=== PATIENT | female | born 1950 | race Caucasian/White ===

== ENCOUNTER 2019-10-13 05:50 | Day surgery (SDC) | payer BC ==
[2019-10-11 09:51] LABS: BASOPHILS % (AUTO) 2.1 % (0.0-5.0); LYMPHOCYTES % (AUTO) 31.4 % (21.0-51.0); MEAN CORPUSCULAR HGB CONC 33.1 g/dL (32.0-36.0); MEAN CORPUSCULAR VOLUME 90.7 fL (79-99); MONOCYTES % (AUTO) 12.5 % (3.0-13.0); NEUTROPHILS % (AUTO) 43.8 % (40.0-77.0); PLATELET COUNT (AUTO) 320 K/uL (130-400); WHITE BLOOD COUNT (AUTO) 5.3 K/uL (4.8-10.8)
[2019-10-11 10:00] LABS: CREATININE 1.3 mg/dL (0.5-1.5); POTASSIUM 4.1 mmol/L (3.5-5.1)
[2019-10-11 10:03] LABS: INR 1.04 (0.85-1.15); PARTIAL THROMBOPLASTIN TIME 35.7 SEC (26.3-35.5); PROTHROMBIN TIME 11.2 SEC (9.6-11.6)
[2019-10-11 15:45] VITALS: BP 127/72
[2019-10-13] VITALS (9 sets, daily range): BP systolic 87–134; BP diastolic 55–70
[~2019-10-13] VITALS: Ht 180.3 cm; Wt 55.1 kg
[~2019-10-13 05:50] MED LIST: ALBU90AE IH; APIX5TAB PO; CALC-190 PO; DENO60DI SQ; EXEM25TA PO; LEVO100T12 PO; MVIT PO; PROP325C5 PO
[2019-10-13] MEDS ORDERED: SODIUM CHLORIDE 0.9% 1000ML 1,000 ML IV ONE (06:04)
[2019-10-13] MEDS ORDERED: HEPARIN SODIUM 1000UNIT/ML 10ML VIAL ONE (07:35)
[2019-10-13] MEDS ORDERED: MEPERIDINE-PF 25 MG/ML SYG ONE ×2 (07:36→09:25)
[2019-10-13] MEDS ORDERED: MIDAZOLAM HCL 1 MG/ML 2ML VIAL ONE ×2 (07:36→09:25)
[2019-10-13] MEDS ORDERED: LIDOCAINE HCL 2% 20ML ONE (07:37)
[2019-10-13] MEDS ORDERED: ISOPROTERENOL HCL 0.2 MG/ML AMP/VIAL/BAG ONE (08:00)
[2019-10-13] MEDS ORDERED: ACETAMINOPHEN 325 MG TAB ONE (14:08)
[2019-10-13] MEDS ORDERED: ACETAMINOPHEN 325 MG TAB PO PRN (14:15)
== END 2019-10-13 14:48 | disposition home or self-care (01) ==
LOC: DAH 05:50
PROVIDERS: ATTEND Internal Medicine Cardiovascular Disease
DX: I47.1 Supraventricular tachycardia (principal); I48.0 Paroxysmal atrial fibrillation; J44.9 Chronic obstructive pulmonary disease, unspecified; E03.9 Hypothyroidism, unspecified; F41.8 Other specified anxiety disorders; Z96.659 Presence of unspecified artificial knee joint; Z98.890 Other specified postprocedural states; Z79.899 Other long term (current) drug therapy; Z79.01 Long term (current) use of anticoagulants; Z82.49 Family history of ischemic heart disease and other diseases of the circulatory system
CPT/HCPCS: 36415; 80048; 85025; 85610; 85730; 93613; 93621; 93623; 93653; A4215; A4216; A4221; A4222; A4223 ×3; A4606; A4649 ×2; A4663; C1730 ×4; C1732; C1894 ×5; J1644 ×2; J2175 ×2; J2250 ×2; J3490 ×2; J7030; 99156; 99157

== ENCOUNTER 2020-03-08 05:51 | Day surgery (SDC) | payer BC ==
[2020-03-06 09:19] LABS: BASOPHILS % (AUTO) 1.6 % (0.0-5.0); EOSINOPHILS % (AUTO) 4.9 % (0.0-8.0); HEMATOCRIT 39.7 % (36-48); LYMPHOCYTES % (AUTO) 35.7 % (21.0-51.0); MEAN CORPUSCULAR HEMOGLOBIN 30.7 pg (27.0-33.0); MEAN CORPUSCULAR HGB CONC 32.7 g/dL (32.0-36.0); MEAN CORPUSCULAR VOLUME 93.6 fL (79-99); MONOCYTES % (AUTO) 12.9 % (3.0-13.0); NEUTROPHILS % (AUTO) 44.9 % (40.0-77.0); PLATELET COUNT (AUTO) 352 K/uL (130-400); RED BLOOD CELL COUNT(AUTO) 4.24 MIL/uL (4.00-5.50); RED CELL DISTRIBUTION WIDTH 11.6 % (11.0-15.5); WHITE BLOOD COUNT (AUTO) 4.5 K/uL (4.8-10.8)
[2020-03-06 09:33] LABS: CREATININE 1.2 mg/dL (0.5-1.5); INR 1.02 (0.85-1.15); PARTIAL THROMBOPLASTIN TIME 36.2 SEC (26.3-35.5); POTASSIUM 4.2 mmol/L (3.5-5.1)
[~2020-03-08] VITALS: Ht 180.3 cm; Wt 54.4 kg
[2020-03-08] VITALS (9 sets, daily range): BP systolic 101–139; BP diastolic 62–82
[~2020-03-08 05:51] MED LIST changes: -CALC-190 PO; -PROP325C5 PO
[2020-03-08] MEDS ORDERED: SODIUM CHLORIDE 0.9% 1000ML 1,000 ML IV ONE (07:02)
[2020-03-08] MEDS ORDERED: FLEC50TA3 PO (07:11)
[2020-03-08] MEDS ORDERED: HEPARIN SODIUM 1000UNIT/ML 10ML VIAL ONE (12:02)
[2020-03-08] MEDS ORDERED: LIDOCAINE HCL 2% 20ML ONE (12:03)
[2020-03-08] MEDS ORDERED: MIDAZOLAM HCL 1 MG/ML 2ML VIAL ONE ×3 (12:03→14:57)
[2020-03-08] MEDS ORDERED: ISOPROTERENOL HCL 0.2 MG/ML AMP/VIAL/BAG ONE ×2 (12:03→14:27)
[2020-03-08] MEDS ORDERED: MEPERIDINE-PF 25 MG/ML SYG ONE ×3 (12:03→14:57)
--- NOTE | 2020-03-08 12:15 | NUR ---
procedure pt taken to [facility] for scheduled procedure via bed, spouse at bedside. pt denied any pain or discomforts
[2020-03-08] MEDS ORDERED: DRON400T2 PO (16:03)
--- NOTE | 2020-03-08 19:27 | NUR ---
discharge pt and spouse given d/c instructions. both voiced understanding. pt groin sites free from bleeding or hematoma. pt taken out via w/c.
== END 2020-03-08 19:27 | disposition home or self-care (01) ==
LOC: DAH 05:51
PROVIDERS: ATTEND Internal Medicine Cardiovascular Disease
DX: I47.1 Supraventricular tachycardia (principal); I48.4 Atypical atrial flutter; I48.0 Paroxysmal atrial fibrillation; E03.9 Hypothyroidism, unspecified; F41.9 Anxiety disorder, unspecified; F32.9 Major depressive disorder, single episode, unspecified; J44.9 Chronic obstructive pulmonary disease, unspecified; Z82.49 Family history of ischemic heart disease and other diseases of the circulatory system; Z79.01 Long term (current) use of anticoagulants; Z79.899 Other long term (current) drug therapy; Z98.890 Other specified postprocedural states; Z79.890 Hormone replacement therapy
CPT/HCPCS: 36415; 80048; 85025; 85610; 85730; 93005; 93613; 93621; 93623; 93653; A4215; A4216; A4221; A4222; A4223 ×3; A4649 ×2; A4663; C1730 ×4; C1731; C1732; C1894 ×5; J1644 ×2; J2175 ×3; J2250 ×3; J3490 ×3; J7030; 99156; 99157

== ENCOUNTER → 2021-07-16 | Outpatient (CLI) | payer BC, MEDICARE ==
[~2021-07-16] MED LIST changes: +FLEC50TA3 PO; +LINA290C PO; -MVIT PO; +TRAM50TA4 PO
== END | disposition home or self-care (01) ==
LOC: SHCH 08:56
PROVIDERS: ATTEND Internal Medicine Cardiovascular Disease
DX: I49.5 Sick sinus syndrome (principal)
CPT/HCPCS: 93306

== ENCOUNTER 2021-07-18 09:48 | Day surgery (SDC) | payer BC, MEDICARE ==
[2021-07-16 09:43] VITALS: BP 146/73
[2021-07-16 15:50] LABS: BASOPHILS % (AUTO) 1.3 % (0.0-5.0); EOSINOPHILS % (AUTO) 2.6 % (0.0-8.0); HEMATOCRIT 38.3 % (36-48); LYMPHOCYTES % (AUTO) 23.3 % (21.0-51.0); MEAN CORPUSCULAR HEMOGLOBIN 31.3 pg (27.0-33.0); MEAN CORPUSCULAR HGB CONC 32.9 g/dL (32.0-36.0); MEAN CORPUSCULAR VOLUME 95.3 fL (79-99); MONOCYTES % (AUTO) 11.3 % (3.0-13.0); NEUTROPHILS % (AUTO) 61.4 % (40.0-77.0); PLATELET COUNT (AUTO) 357 K/uL (130-400); RED BLOOD CELL COUNT(AUTO) 4.02 MIL/uL (4.00-5.50); RED CELL DISTRIBUTION WIDTH 12.5 % (11.0-15.5)
[2021-07-16 16:00] LABS: CREATININE 1.1 mg/dL (0.5-1.5); POTASSIUM 4.2 mmol/L (3.5-5.1)
[2021-07-16 16:02] LABS: INR 1.04 (0.85-1.15); PROTHROMBIN TIME 11.3 SEC (9.6-11.6)
[2021-07-16 16:04] LABS: PARTIAL THROMBOPLASTIN TIME 33.9 SEC (26.3-35.5)
[~2021-07-18] VITALS: Ht 180.3 cm; Wt 56.5 kg
[2021-07-18] VITALS (9 sets, daily range): BP systolic 130–154; BP diastolic 78–88
[~2021-07-18 09:48] MED LIST changes: +0.9%NACL 1000ML 1,000 ML IV SCH; +CEFAZOLIN SODIUM 1 GM VIAL IVP ONE; -TRAM50TA4 PO
[2021-07-18] MEDS ORDERED: CEFAZOLIN SODIUM 1 GM VIAL ONE (10:25)
[2021-07-18] MEDS ORDERED: BUPIVACAINE/PF 0.25% 30ML VIAL IJ ONE (10:25)
[2021-07-18] MEDS ORDERED: MEPERIDINE-PF 25 MG/ML SYG ONE (10:26)
[2021-07-18] MEDS ORDERED: MIDAZOLAM HCL 1 MG/ML 2ML VIAL ONE ×2 (10:26→11:36)
[2021-07-18] MEDS ORDERED: LIDOCAINE HCL 1% MDV 50ML VIAL ONE (10:33)
[2021-07-18] MEDS ORDERED: IOHEXOL-350 50ML VIAL IV ONE (11:17)
[2021-07-18] MEDS ORDERED: MEPERIDINE-PF 50 MG/ML SYG ONE ×2 (11:27→11:37)
[2021-07-18] MEDS ORDERED: TRAM50TA4 PO (13:30)
[2021-07-18] MEDS ORDERED: ACETAMINOPHEN WITH CODEINE 1 TAB TAB PO PRN (13:30)
[2021-07-18] MEDS ORDERED: ACETAMINOPHEN 500 MG TABLET PO ONE (14:00)
== END 2021-07-18 16:00 | disposition home or self-care (01) ==
LOC: DAH 09:48
PROVIDERS: ATTEND Internal Medicine Cardiovascular Disease
DX: Z45.09 Encounter for adjustment and management of other cardiac device (principal); I49.5 Sick sinus syndrome; I45.10 Unspecified right bundle-branch block; I48.4 Atypical atrial flutter; I47.1 Supraventricular tachycardia; E03.9 Hypothyroidism, unspecified; I48.0 Paroxysmal atrial fibrillation; J44.9 Chronic obstructive pulmonary disease, unspecified; F41.9 Anxiety disorder, unspecified; F32.9 Major depressive disorder, single episode, unspecified; J45.909 Unspecified asthma, uncomplicated; Z98.890 Other specified postprocedural states; Z79.890 Hormone replacement therapy; Z85.3 Personal history of malignant neoplasm of breast; Z82.49 Family history of ischemic heart disease and other diseases of the circulatory system; Z79.01 Long term (current) use of anticoagulants; Z79.899 Other long term (current) drug therapy
CPT/HCPCS: 33208; 33286; 36415; 71045; 80048; 85025; 85610; 85730; 93005; A4215; A4216; A4221; A4222; A4223 ×3; A4606; A4649; A4663; C1785; C1898 ×2; J0690; J2175 ×3; J2250 ×2; J3490 ×2; J7030; Q9967; 99156; 99157

== ENCOUNTER → 2021-12-16 | Outpatient (CLI) | payer BC, MEDICARE ==
[~2021-12-16] MED LIST changes: -0.9%NACL 1000ML 1,000 ML IV SCH; -CEFAZOLIN SODIUM 1 GM VIAL IVP ONE; +TRAM50TA4 PO
== END | disposition home or self-care (01) ==
LOC: RAH 13:04
PROVIDERS: ATTEND Internal Medicine Cardiovascular Disease
DX: R59.0 Localized enlarged lymph nodes (principal); Z95.0 Presence of cardiac pacemaker
CPT/HCPCS: 76882

== ENCOUNTER → 2023-02-10 | Outpatient (CLI) | payer MEDICARE | END | disposition home or self-care (01) | LOC: SHCH 09:32 | PROVIDERS: ATTEND Internal Medicine Cardiovascular Disease | DX: I48.0 Paroxysmal atrial fibrillation (principal); Z95.0 Presence of cardiac pacemaker | CPT/HCPCS: 93306 ==